=== PATIENT | male | born 1940 | race Caucasian/White ===

== ENCOUNTER 2019-01-06 16:45 | Observation (INO) ==
[2019-01-06 17:55] LABS: Basophils % 0.4 % (0.0-0.8); Eosinophils # 0.2 10*3/uL (0.0-0.87); Hematocrit 34.6 VOL% (42.0-52.0); Hemoglobin 11.1 GM/DL (14.0-18.0); Immature Granulocytes % 0.4 %; Immature Granulocytes Absolute 0.04 #; Lymphocytes # 0.6 10*3/uL (1.4-4.0); Mean Corpuscular HGB Conc 32.1 GM/DL (32-36); Mean Corpuscular Volume 98.9 FL (87-102); Mean Platelet Volume 10.1 FL (9.6-12.0); Monocytes % 5.1 % (1.7-12.7); Neutrophils % 86.1 % (38.7-73.9); Platelet Count 173 T/CUMM (130-400); Red Cell Distribution Width 13.5 % (9.3-17.3); White Blood Count 9.2 T/CUMM (4-12)
[2019-01-06 18:03] LABS: INR 0.9; PT Patient Result 10.3 SECS; Partial Thromboplastin Time 25.8 SECS (0-40)
[2019-01-06 18:31] LABS: Alanine Aminotransferase 23 U/L (16-61); Albumin 3.4 G/DL (3.4-5.0); Alkaline Phosphatase 95 U/L (45-117); Aspartate Amino Transferase 10 U/L (0-37); Bilirubin,Total < 0.39 MG/DL (0.2-1.0); Blood Urea Nitrogen 21 MG/DL (7-18); Calcium 8.1 MG/DL (8.5-10.1); Glucose 118 MG/DL (74-106); Osmolality,Calculated 280.5 MOS/KG (273-304); Total Protein 6.9 G/DL (6.4-8.3); Troponin I < 0.015 NG/ML (0.00-0.045)
[2019-01-06 18:35] LABS: Free T4 (Free Thyroxine) 0.99 NG/DL (0.76-1.46); Thyroid Stimulating Hormone 1.1 uIU/ml (0.358-3.74)
[2019-01-06 19:33] LABS: Apearance,Urine CLOUDY (Clear); Bilirubin,Urine Negative (Negative); Blood, Urine Negative (Negative); Glucose,Urine (UA) Negative (Negative); Hyaline Casts,Urine 2 /LPF (0-3); Ketones,Urine Negative (Negative); Mucus,Urine Occasional /LPF (Occasional); Nitrite,Urine Negative (Negative); Protein,Urine 100 MG/DL; Squamous Epithelial Cell,Urine Occasional /HPF (0-10); Urine Color Yellow (Yellow); Urine Specific Gravity 1.014 (1.001-1.035); Urine Urobilinogen < 2.0 EU/DL (0.2-1.0); WBC,Urine 326 /HPF (0-6)
[2019-01-06] MEDS ORDERED: MORPHINE 4 MG/1 ML VIAL IM STA (20:06)
[2019-01-06] MEDS ORDERED: ONDANSETRON 4 MG/2 ML VIAL IV STA (20:06)
[2019-01-06] MEDS ORDERED: MORPHINE 4 MG/1 ML VIAL IV STA (20:17)
[2019-01-06] MEDS ORDERED: CIPROFLOXACIN INJ 400 MG in PREMIX 1 EACH IV STA (20:21)
[2019-01-06] MEDS ORDERED: CIPROFLOXACIN 400 MG/200 ML PREMIX IV ONE (20:33)
[2019-01-06] MEDS ORDERED: ACETAMINOPHEN 325 MG TABLET PO PRN (22:57)
[2019-01-07] MEDS: HEPARIN 5,000 UNIT/1 ML VIAL SUBCUT SCH ×5 (00:09→21:06)
[2019-01-07 04:50] LABS: Basophils % 0.3 % (0.0-0.8); Eosinophils # 0.3 10*3/uL (0.0-0.87); Eosinophils % 3.5 % (0.00-10.9); Hematocrit 30.7 VOL% (42.0-52.0); Hemoglobin 9.8 GM/DL (14.0-18.0); Immature Granulocytes % 0.4 %; Immature Granulocytes Absolute 0.03 #; Lymphocytes # 1.1 10*3/uL (1.4-4.0); Lymphocytes % 14.7 % (21.2-54.2); Mean Corpuscular HGB Conc 31.9 GM/DL (32-36); Mean Corpuscular Volume 97.8 FL (87-102); Mean Platelet Volume 10.4 FL (9.6-12.0); Monocytes % 8.6 % (1.7-12.7); Neutrophils % 72.5 % (38.7-73.9); Platelet Count 153 T/CUMM (130-400); Red Blood Count 3.14 MC/CUMM (3.8-5.5); Red Cell Distribution Width 13.6 % (9.3-17.3); White Blood Count 7.5 T/CUMM (4-12)
[2019-01-07] MEDS ORDERED: NITROGLYCERIN SL 0.4 MG TABLET SL PRN (07:01)
[2019-01-07] MEDS: ASPIRIN EC 81 MG TABLET PO SCH (08:05)
[2019-01-07] MEDS: SERTRALINE 50 MG TABLET PO SCH (08:06)
[2019-01-07] MEDS: CILOSTAZOL 100 MG TABLET PO SCH ×2 (08:06→20:41)
[2019-01-07] MEDS: DICYCLOMINE 10 MG CAPSULE PO SCH ×4 (08:06→20:41)
[2019-01-07] MEDS: EZETIMIBE 10 MG TABLET PO SCH (08:06)
[2019-01-07] MEDS: MULTIVITAMIN (OCUVITE) TABLET PO SCH ×2 (08:06→20:41)
[2019-01-07] MEDS: CYANOCOBALAMIN 500 MCG TABLET PO SCH (08:40)
[2019-01-07] MEDS ORDERED: PANTOPRAZOLE 40 MG TABLET PO SCH (09:00)
[2019-01-07 09:48] LABS: Folate 8.4 NG/ML (5.4-24.0); Vitamin B12 > 2000 PG/ML (211-911)
[2019-01-07] MEDS: ONDANSETRON 4 MG/2 ML VIAL IV PRN ×2 (12:24→17:26)
[2019-01-07] MEDS ORDERED: ALUMINUM/MAGNES/SIMETH MAX STR 30 ML UDCUP PO ONE (12:30)
[2019-01-07] MEDS ORDERED: CIPROFLOXACIN INJ 400 MG in PREMIX 1 EACH IV SCH (17:00)
[2019-01-08] MEDS: HEPARIN 5,000 UNIT/1 ML VIAL SUBCUT SCH ×2 (05:08→14:54)
[2019-01-08 05:50] LABS: Calcium 8.8 MG/DL (8.5-10.1); Osmolality,Calculated 287.3 MOS/KG (273-304)
[2019-01-08 06:00] LABS: Basophils % 0.6 % (0.0-0.8); Eosinophils # 0.4 10*3/uL (0.0-0.87); Eosinophils % 6.3 % (0.00-10.9); Hematocrit 32.8 VOL% (42.0-52.0); Hemoglobin 10.2 GM/DL (14.0-18.0); Immature Granulocytes % 0.6 %; Immature Granulocytes Absolute 0.04 #; Lymphocytes # 1.2 10*3/uL (1.4-4.0); Lymphocytes % 16.8 % (21.2-54.2); Mean Corpuscular HGB Conc 31.1 GM/DL (32-36); Mean Corpuscular Volume 100.6 FL (87-102); Mean Platelet Volume 10.7 FL (9.6-12.0); Monocytes % 8.2 % (1.7-12.7); Neutrophils % 67.5 % (38.7-73.9); Platelet Count 158 T/CUMM (130-400); Red Blood Count 3.26 MC/CUMM (3.8-5.5); Red Cell Distribution Width 13.5 % (9.3-17.3)
[2019-01-08] MEDS: ONDANSETRON 4 MG/2 ML VIAL IV PRN (07:44)
[2019-01-08] MEDS ORDERED: PANTOPRAZOLE 20 MG TABLET PO SCH (09:00)
[2019-01-08] MEDS ORDERED: ONDANSETRON 4 MG TABLET PO PRN (09:14)
[2019-01-08] MEDS: EZETIMIBE 10 MG TABLET PO SCH (09:35)
[2019-01-08] MEDS: CYANOCOBALAMIN 500 MCG TABLET PO SCH (09:35)
[2019-01-08] MEDS: ASPIRIN EC 81 MG TABLET PO SCH (09:35)
[2019-01-08] MEDS: CILOSTAZOL 100 MG TABLET PO SCH (09:35)
[2019-01-08] MEDS: MULTIVITAMIN (OCUVITE) TABLET PO SCH (09:35)
[2019-01-08] MEDS: SERTRALINE 50 MG TABLET PO SCH (09:35)
[2019-01-08] MEDS: DICYCLOMINE 10 MG CAPSULE PO SCH ×2 (09:35→13:06)
[2019-01-08 10:32] VITALS: BP 159/87
== END 2019-01-08 15:34 | disposition home health service (06) ==
LOC: EDUNIT# → EDBD → N.EDINP 16:45 → N.ED 16:45 → N.EDINP 22:21 → N.5E 22:56
PROVIDERS: ADMIT Internal Medicine; ATTEND Internal Medicine

== ENCOUNTER 2020-09-16 13:13 | Inpatient (IN) ==
[2020-09-16] MEDS ORDERED: ONDANSETRON 4 MG/2 ML VIAL IV STA ×2 (13:34→14:43)
[2020-09-16] MEDS ORDERED: HYDROmorphone 2 MG/1 ML VIAL IV STA (13:34)
[2020-09-16 13:40] LABS: Basophils % 0.1 % (0.0-0.8); Hematocrit 31.9 VOL% (42.0-52.0); Hemoglobin 10.4 GM/DL (14.0-18.0); Immature Granulocytes % 0.9 %; Immature Granulocytes Absolute 0.07 #; Lymphocytes # 0.5 10*3/uL (1.4-4.0); Lymphocytes % 5.7 % (21.2-54.2); Mean Corpuscular HGB Conc 32.6 GM/DL (32-36); Mean Corpuscular Volume 94.7 FL (87-102); Mean Platelet Volume 9.7 FL (9.6-12.0); Monocytes % 6.4 % (1.7-12.7); Neutrophils % 86.9 % (38.7-73.9); Platelet Count 249 T/CUMM (130-400); Red Blood Count 3.37 MC/CUMM (3.8-5.5); Red Cell Distribution Width 12.7 % (9.3-17.3); White Blood Count 7.9 T/CUMM (4-12)
[2020-09-16 13:57] LABS: Albumin 3.3 G/DL (3.4-5.0); Bilirubin,Total 0.5 MG/DL (0.2-1.0); Calcium 8.5 MG/DL (8.5-10.1); Osmolality,Calculated 294.5 MOS/KG (273-304); Potassium 3.3 MMOL/L (3.5-5.1); Total Protein 7.3 G/DL (5.0-7.5)
[2020-09-16] MEDS: SODIUM CHLORIDE 0.9% 1,000 ML IV SCH (15:07)
[2020-09-16] MEDS ORDERED: DEXTROSE 50% 25 GM/50 ML VIAL IV PRN (15:41)
[2020-09-16] MEDS ORDERED: GLUCAGON 1 MG VIAL IM PRN (15:41)
[2020-09-16] MEDS ORDERED: NITROGLYCERIN SL 0.4 MG TABLET SL PRN (15:50)
[2020-09-16] MEDS: PANTOPRAZOLE 40 MG VIAL IV SCH (16:57)
[2020-09-16] MEDS: ERYTHROMYCIN INJ 250 MG in SODIUM CHLORIDE 0.9% 100 ML IV SCH (18:34)
[2020-09-17] MEDS: ERYTHROMYCIN INJ 250 MG in SODIUM CHLORIDE 0.9% 100 ML IV SCH ×2 (02:37→10:51)
[2020-09-17] MEDS: PANTOPRAZOLE 40 MG VIAL IV SCH ×2 (04:17→15:23)
[2020-09-17] MEDS ORDERED: POTASSIUM CHLORIDE 20 MEQ TABLET PO ONE (07:35)
[2020-09-17] MEDS: ZINC GLUCONATE 50 MG TABLET PO SCH (09:30)
[2020-09-17] MEDS: SERTRALINE 50 MG TABLET PO SCH (09:30)
[2020-09-17] MEDS: CHOLECALCIFEROL 1,000 UNIT TABLET PO SCH (09:30)
[2020-09-17] MEDS: ASPIRIN EC 81 MG TABLET PO SCH (09:30)
[2020-09-17] MEDS: ASCORBIC ACID 500 MG TABLET PO SCH ×2 (09:30→20:48)
[2020-09-17] MEDS: EZETIMIBE 10 MG TABLET PO SCH (09:30)
[2020-09-17] MEDS: OMEGA 3 ACID ETHYL ESTERS 1 GM CAPSULE PO SCH (09:30)
[2020-09-17] MEDS: TAMSULOSIN 0.4 MG CAPSULE PO SCH (09:30)
[2020-09-17] MEDS ORDERED: ONDANSETRON 4 MG/2 ML VIAL IV PRN (10:42)
[2020-09-17] MEDS ORDERED: AZITHROMYCIN INJ 500 MG in SODIUM CHLORIDE 0.9% 250 ML IV SCH (11:00)
[2020-09-17] MEDS: SODIUM CHLORIDE 0.9% 1,000 ML IV SCH (11:15)
[2020-09-17] MEDS: HEPARIN 5,000 UNIT/1 ML VIAL SUBCUT SCH ×2 (12:35→20:48)
[2020-09-17 13:01] LABS: Hepatitis B Core IgM Quant < 0.05 Index; Hepatitis B Surface Ag Quant < 0.10 Index; Hepatitis B Surface Ag Result Non-Reactive (NonReactive); Hepatitis C Virus Ab Quant 0.04 Index; Hepatitis C Virus Ab Result Non-Reactive (NonReactive)
[2020-09-17] MEDS ORDERED: EPOETIN ALFA-EPBX 2,000 UNIT/ML VIAL IV PRN (15:59)
[2020-09-17] MEDS ORDERED: amLODIPine 5 MG TABLET PO ONE (20:53)
[2020-09-17] MEDS ORDERED: cloNIDine 0.1 MG TABLET PO PRN (23:53)
[2020-09-18 04:00] LABS: Basophils % 0.1 % (0.0-0.8); Hematocrit 29.5 VOL% (42.0-52.0); Hemoglobin 9.7 GM/DL (14.0-18.0); Immature Granulocytes % 1.4 %; Immature Granulocytes Absolute 0.12 #; Lymphocytes # 0.4 10*3/uL (1.4-4.0); Lymphocytes % 4.1 % (21.2-54.2); Mean Corpuscular HGB Conc 32.9 GM/DL (32-36); Mean Corpuscular Volume 94.6 FL (87-102); Mean Platelet Volume 9.9 FL (9.6-12.0); Neutrophils % 90.4 % (38.7-73.9); Platelet Count 264 T/CUMM (130-400); Red Blood Count 3.12 MC/CUMM (3.8-5.5); Red Cell Distribution Width 12.5 % (9.3-17.3); White Blood Count 8.8 T/CUMM (4-12)
[2020-09-18] MEDS: HEPARIN 5,000 UNIT/1 ML VIAL SUBCUT SCH ×3 (04:22→20:14)
[2020-09-18] MEDS: PANTOPRAZOLE 40 MG VIAL IV SCH (04:22)
[2020-09-18] MEDS: ACETAMINOPHEN 325 MG TABLET PO PRN ×2 (04:56→20:14)
[2020-09-18 05:10] LABS: Calcium 8.7 MG/DL (8.5-10.1); Ferritin 4834.7 ng/ml (26-388); Osmolality,Calculated 283.7 MOS/KG (273-304); Potassium 3.8 MMOL/L (3.5-5.1)
[2020-09-18 05:53] LABS: Lymphocytes 4 % (20-55); Platelet Estimate Normal; Segmented Neutrophils 92 % (50-85); Total Cells Counted 100
[2020-09-18 05:54] LABS: Microcytosis 1+; Stomatocytes 1+
[2020-09-18] MEDS: SODIUM CHLORIDE 0.9% 1,000 ML IV SCH (06:46)
[2020-09-18] MEDS ORDERED: ONDANSETRON ODT 4 MG TABLET PO PRN (09:16)
[2020-09-18] MEDS: ZINC GLUCONATE 50 MG TABLET PO SCH (10:20)
[2020-09-18] MEDS: DEXAMETHASONE 4 MG TABLET PO SCH (10:20)
[2020-09-18] MEDS: CHOLECALCIFEROL 1,000 UNIT TABLET PO SCH (10:20)
[2020-09-18] MEDS: PANTOPRAZOLE 40 MG TABLET PO SCH (10:20)
[2020-09-18] MEDS: OMEGA 3 ACID ETHYL ESTERS 1 GM CAPSULE PO SCH (10:20)
[2020-09-18] MEDS: EZETIMIBE 10 MG TABLET PO SCH (10:20)
[2020-09-18] MEDS: AZITHROMYCIN 250 MG TABLET PO SCH (10:20)
[2020-09-18] MEDS: amLODIPine 5 MG TABLET PO SCH (10:20)
[2020-09-18] MEDS: ASCORBIC ACID 500 MG TABLET PO SCH ×2 (10:20→20:14)
[2020-09-18] MEDS: TAMSULOSIN 0.4 MG CAPSULE PO SCH (10:20)
[2020-09-18] MEDS: SERTRALINE 50 MG TABLET PO SCH (10:20)
[2020-09-18] MEDS: ASPIRIN EC 81 MG TABLET PO SCH (10:20)
[2020-09-19] MEDS: CARBOXYMETHYLCELLULOSE 1% OPH SOLN BOTH EYES PRN ×4 (00:05→20:19)
[2020-09-19] MEDS: ZALEPLON 5 MG CAPSULE PO PRN ×2 (00:05→20:21)
[2020-09-19] MEDS: HEPARIN 5,000 UNIT/1 ML VIAL SUBCUT SCH ×3 (03:31→20:19)
[2020-09-19 04:04] LABS: Basophils % 0.1 % (0.0-0.8); Hematocrit 31.3 VOL% (42.0-52.0); Hemoglobin 10.1 GM/DL (14.0-18.0); Immature Granulocytes % 1.1 %; Lymphocytes # 0.4 10*3/uL (1.4-4.0); Lymphocytes % 4.3 % (21.2-54.2); Mean Corpuscular HGB Conc 32.3 GM/DL (32-36); Mean Corpuscular Volume 95.4 FL (87-102); Mean Platelet Volume 9.8 FL (9.6-12.0); Monocytes % 4.5 % (1.7-12.7); Platelet Count 293 T/CUMM (130-400); Red Blood Count 3.28 MC/CUMM (3.8-5.5); Red Cell Distribution Width 12.5 % (9.3-17.3); White Blood Count 9.3 T/CUMM (4-12)
[2020-09-19 04:19] LABS: Calcium 8.7 MG/DL (8.5-10.1); Osmolality,Calculated 296.7 MOS/KG (273-304); Potassium 3.5 MMOL/L (3.5-5.1)
[2020-09-19] MEDS: amLODIPine 5 MG TABLET PO SCH (09:20)
[2020-09-19] MEDS: DEXAMETHASONE 4 MG TABLET PO SCH (09:20)
[2020-09-19] MEDS: ZINC GLUCONATE 50 MG TABLET PO SCH (09:20)
[2020-09-19] MEDS: OMEGA 3 ACID ETHYL ESTERS 1 GM CAPSULE PO SCH (09:20)
[2020-09-19] MEDS: PANTOPRAZOLE 40 MG TABLET PO SCH ×2 (09:20→20:19)
[2020-09-19] MEDS: SERTRALINE 50 MG TABLET PO SCH (09:20)
[2020-09-19] MEDS: ASCORBIC ACID 500 MG TABLET PO SCH ×2 (09:20→20:19)
[2020-09-19] MEDS: AZITHROMYCIN 250 MG TABLET PO SCH (09:20)
[2020-09-19] MEDS: ASPIRIN EC 81 MG TABLET PO SCH (09:20)
[2020-09-19] MEDS: CHOLECALCIFEROL 1,000 UNIT TABLET PO SCH (09:20)
[2020-09-19] MEDS: EZETIMIBE 10 MG TABLET PO SCH (09:20)
[2020-09-19] MEDS: TAMSULOSIN 0.4 MG CAPSULE PO SCH (09:20)
[2020-09-19 11:06] LABS: Hematocrit 30.1 VOL% (42.0-52.0); Hemoglobin 9.9 GM/DL (14.0-18.0)
[2020-09-19 17:28] LABS: Hematocrit 30.3 VOL% (42.0-52.0); Hemoglobin 9.9 GM/DL (14.0-18.0)
[2020-09-19] MEDS: PROMETHAZINE 25 MG TABLET PO PRN (20:20)
[2020-09-19] MEDS: ACETAMINOPHEN 325 MG TABLET PO PRN (20:20)
[2020-09-20 02:11] LABS: Hematocrit 29.1 VOL% (42.0-52.0); Hemoglobin 9.8 GM/DL (14.0-18.0)
[2020-09-20 03:03] LABS: Ferritin 4637.8 ng/ml (26-388); Osmolality,Calculated 296.1 MOS/KG (273-304); Potassium 3.5 MMOL/L (3.5-5.1)
[2020-09-20] MEDS: HEPARIN 5,000 UNIT/1 ML VIAL SUBCUT SCH ×3 (05:04→21:05)
[2020-09-20 05:51] LABS: Basophils % 0.1 % (0.0-0.8); Eosinophils % 0.1 % (0.00-10.9); Hematocrit 27.2 VOL% (42.0-52.0); Hemoglobin 9.2 GM/DL (14.0-18.0); Immature Granulocytes % 1.6 %; Immature Granulocytes Absolute 0.14 #; Lymphocytes # 0.5 10*3/uL (1.4-4.0); Lymphocytes % 5.5 % (21.2-54.2); Mean Corpuscular HGB Conc 33.8 GM/DL (32-36); Mean Corpuscular Volume 91.9 FL (87-102); Mean Platelet Volume 10.1 FL (9.6-12.0); Monocytes % 4.7 % (1.7-12.7); Platelet Count 326 T/CUMM (130-400); Red Blood Count 2.96 MC/CUMM (3.8-5.5); Red Cell Distribution Width 12.5 % (9.3-17.3)
[2020-09-20] MEDS: OMEGA 3 ACID ETHYL ESTERS 1 GM CAPSULE PO SCH (09:05)
[2020-09-20] MEDS: SERTRALINE 50 MG TABLET PO SCH (09:05)
[2020-09-20] MEDS: EZETIMIBE 10 MG TABLET PO SCH (09:05)
[2020-09-20] MEDS: CHOLECALCIFEROL 1,000 UNIT TABLET PO SCH (09:06)
[2020-09-20] MEDS: AZITHROMYCIN 250 MG TABLET PO SCH (09:06)
[2020-09-20] MEDS: DEXAMETHASONE 4 MG TABLET PO SCH (09:06)
[2020-09-20] MEDS: ASCORBIC ACID 500 MG TABLET PO SCH ×2 (09:06→21:06)
[2020-09-20] MEDS: TAMSULOSIN 0.4 MG CAPSULE PO SCH (09:07)
[2020-09-20] MEDS: ZINC GLUCONATE 50 MG TABLET PO SCH (09:07)
[2020-09-20] MEDS: amLODIPine 5 MG TABLET PO SCH (09:07)
[2020-09-20] MEDS: PANTOPRAZOLE 40 MG TABLET PO SCH ×2 (09:08→21:06)
[2020-09-20] MEDS: ASPIRIN EC 81 MG TABLET PO SCH (09:08)
[2020-09-20] MEDS: CARBOXYMETHYLCELLULOSE 1% OPH SOLN BOTH EYES PRN ×2 (13:35→21:07)
[2020-09-20 15:12] LABS: Bilirubin,Urine Negative (Negative); Blood, Urine Negative (Negative); Glucose,Urine (UA) Negative (Negative); Hyaline Casts,Urine 3 /LPF (0-3); Ketones,Urine Negative (Negative); Nitrite,Urine Negative (Negative); Protein,Urine 30 MG/DL; RBC,Urine 6 /HPF (0-4); Squamous Epithelial Cell,Urine Occasional /HPF (0-10); Urine Appearance CLEAR (Clear); Urine Color Yellow (Yellow); Urine Specific Gravity 1.016 (1.001-1.035); Urine Urobilinogen < 2.0 EU/DL (0.2-1.0); WBC,Urine 28 /HPF (0-6)
[2020-09-20] MEDS: ZALEPLON 5 MG CAPSULE PO PRN (21:06)
[2020-09-21] MEDS: ACETAMINOPHEN 325 MG TABLET PO PRN (00:07)
[2020-09-21] MEDS: HEPARIN 5,000 UNIT/1 ML VIAL SUBCUT SCH ×3 (04:45→20:03)
[2020-09-21] MEDS: ASPIRIN EC 81 MG TABLET PO SCH (08:57)
[2020-09-21] MEDS: SERTRALINE 50 MG TABLET PO SCH (08:58)
[2020-09-21] MEDS ORDERED: TUBERCULIN SKIN TEST 0.1 ML SYRINGE INTRADERM ONE (09:00)
[2020-09-21] MEDS: TAMSULOSIN 0.4 MG CAPSULE PO SCH (09:00)
[2020-09-21] MEDS: CARBOXYMETHYLCELLULOSE 1% OPH SOLN BOTH EYES PRN (09:00)
[2020-09-21] MEDS: AZITHROMYCIN 250 MG TABLET PO SCH (09:00)
[2020-09-21] MEDS: DEXAMETHASONE 4 MG TABLET PO SCH (09:01)
[2020-09-21] MEDS: amLODIPine 5 MG TABLET PO SCH (09:02)
[2020-09-21] MEDS: ZINC GLUCONATE 50 MG TABLET PO SCH (09:02)
[2020-09-21] MEDS: ASCORBIC ACID 500 MG TABLET PO SCH ×2 (09:02→20:03)
[2020-09-21] MEDS: PANTOPRAZOLE 40 MG TABLET PO SCH ×2 (09:02→20:03)
[2020-09-21] MEDS: CHOLECALCIFEROL 1,000 UNIT TABLET PO SCH (09:03)
[2020-09-21] MEDS: EZETIMIBE 10 MG TABLET PO SCH (09:03)
[2020-09-21] MEDS: OMEGA 3 ACID ETHYL ESTERS 1 GM CAPSULE PO SCH (09:04)
[2020-09-21] MEDS: ZALEPLON 5 MG CAPSULE PO PRN (20:03)
[2020-09-21] MEDS: PROMETHAZINE 25 MG TABLET PO PRN (22:49)
[2020-09-22] MEDS: HEPARIN 5,000 UNIT/1 ML VIAL SUBCUT SCH ×3 (03:41→21:21)
[2020-09-22 06:03] LABS: Basophils % 0.2 % (0.0-0.8); Eosinophils # 0.1 10*3/uL (0.0-0.87); Eosinophils % 1.1 % (0.00-10.9); Hematocrit 29.3 VOL% (42.0-52.0); Hemoglobin 9.8 GM/DL (14.0-18.0); Immature Granulocytes % 3.4 %; Immature Granulocytes Absolute 0.33 #; Lymphocytes # 0.7 10*3/uL (1.4-4.0); Lymphocytes % 7.4 % (21.2-54.2); Mean Corpuscular HGB Conc 33.4 GM/DL (32-36); Mean Platelet Volume 10.4 FL (9.6-12.0); Monocytes % 8.7 % (1.7-12.7); Neutrophils % 79.2 % (38.7-73.9); Platelet Count 339 T/CUMM (130-400); Red Blood Count 3.15 MC/CUMM (3.8-5.5); Red Cell Distribution Width 12.5 % (9.3-17.3); White Blood Count 9.6 T/CUMM (4-12)
[2020-09-22 06:25] LABS: Calcium 9.2 MG/DL (8.5-10.1); Osmolality,Calculated 295.7 MOS/KG (273-304); Potassium 3.7 MMOL/L (3.5-5.1)
[2020-09-22] MEDS: OMEGA 3 ACID ETHYL ESTERS 1 GM CAPSULE PO SCH (09:14)
[2020-09-22] MEDS: DEXAMETHASONE 4 MG TABLET PO SCH (09:15)
[2020-09-22] MEDS: ASCORBIC ACID 500 MG TABLET PO SCH ×2 (09:15→21:18)
[2020-09-22] MEDS: CHOLECALCIFEROL 1,000 UNIT TABLET PO SCH (09:16)
[2020-09-22] MEDS: AZITHROMYCIN 250 MG TABLET PO SCH (09:16)
[2020-09-22] MEDS: SERTRALINE 50 MG TABLET PO SCH (09:17)
[2020-09-22] MEDS: ZINC GLUCONATE 50 MG TABLET PO SCH (09:17)
[2020-09-22] MEDS: amLODIPine 5 MG TABLET PO SCH (09:17)
[2020-09-22] MEDS: ASPIRIN EC 81 MG TABLET PO SCH (09:17)
[2020-09-22] MEDS: TAMSULOSIN 0.4 MG CAPSULE PO SCH (09:17)
[2020-09-22] MEDS: EZETIMIBE 10 MG TABLET PO SCH (09:17)
[2020-09-22] MEDS: PANTOPRAZOLE 40 MG TABLET PO SCH (09:17)
[2020-09-22] MEDS: CARBOXYMETHYLCELLULOSE 1% OPH SOLN BOTH EYES PRN (09:20)
[2020-09-22] MEDS: SODIUM CHLORIDE 0.9% 1,000 ML IV SCH (15:53)
[2020-09-23] MEDS: HEPARIN 5,000 UNIT/1 ML VIAL SUBCUT SCH ×2 (04:20→12:16)
[2020-09-23] MEDS: SODIUM CHLORIDE 0.9% 1,000 ML IV SCH (04:23)
[2020-09-23 05:59] LABS: Calcium 8.8 MG/DL (8.5-10.1); Osmolality,Calculated 283.8 MOS/KG (273-304)
[2020-09-23] MEDS ORDERED: PANTOPRAZOLE 40 MG TABLET PO SCH (09:00)
[2020-09-23] MEDS: ASPIRIN EC 81 MG TABLET PO SCH (09:28)
[2020-09-23] MEDS: DEXAMETHASONE 4 MG TABLET PO SCH (09:29)
[2020-09-23] MEDS: SERTRALINE 50 MG TABLET PO SCH (09:30)
[2020-09-23] MEDS: ZINC GLUCONATE 50 MG TABLET PO SCH (09:31)
[2020-09-23] MEDS: CHOLECALCIFEROL 1,000 UNIT TABLET PO SCH (09:31)
[2020-09-23] MEDS: amLODIPine 5 MG TABLET PO SCH (09:31)
[2020-09-23] MEDS: TAMSULOSIN 0.4 MG CAPSULE PO SCH (09:31)
[2020-09-23] MEDS: ASCORBIC ACID 500 MG TABLET PO SCH (09:31)
[2020-09-23] MEDS: EZETIMIBE 10 MG TABLET PO SCH (09:32)
[2020-09-23] MEDS: OMEGA 3 ACID ETHYL ESTERS 1 GM CAPSULE PO SCH (09:32)
[2020-09-23 11:39] VITALS: BP 151/72
== END 2020-09-23 12:58 | DRG 314 ==
LOC: EDUNIT# → EDBD → N.ED 13:13 → SUATTDRO 15:41 → N.EDINP 15:41 → N.2E 16:46
PROVIDERS: ADMIT Internal Medicine; ATTEND Internal Medicine